=== PATIENT | female | born 1955 | race Caucasian/White ===

== ENCOUNTER 2020-03-07 10:42 | Inpatient (IN) | payer MEDICAID ==
[~2020-03-07] VITALS: Ht 167.6 cm; Wt 74.5 kg
[2020-03-07] MEDS ORDERED: ONDANSETRON 2MG/ML, 2ML IVPush ONE ×2 (11:30→14:00)
[2020-03-07] MEDS ORDERED: SODIUM CHLORIDE 0.9% 1,000ML IVBOLUS ONE (11:30)
[2020-03-07] MEDS ORDERED: ONDANSETRON 2MG/ML, 2ML ONE ×2 (11:44→13:42)
--- NOTE | 2020-03-07 11:45 | NUR ---
TASK RN: PT AMBULATED TO BATHROOM AND PROVIDED URINE SAMPLE. MEDICATED FOR NAUSEA AND FLUIDS INFUSING
[2020-03-07 11:49] LABS: BASOPHILS # (AUTO) 0.02 x10^3/uL (0-0.1); BASOPHILS % (AUTO) 0 % (0-1); EOSINOPHILS # (AUTO) 0.02 x10^3/uL (0-0.4); EOSINOPHILS % (AUTO) 0 % (1-7); LYMPHOCYTES # (AUTO) 0.82 x10^3/uL (1-3.4); LYMPHOCYTES % (AUTO) 9 % (22-44); MD NO; MEAN CORPUSCULAR HEMOGLOBIN 32.5 pg (27.0-34.8); MEAN CORPUSCULAR HGB CONC 32.5 g/dL (32.4-35.8); MEAN CORPUSCULAR VOLUME 99.8 fL (80-100); MEAN PLATELET VOLUME 6.9 fL (7.4-10.4); MONOCYTES # (AUTO) 0.56 x10^3/uL (0.2-0.8); MONOCYTES % (AUTO) 6 % (2-9); NEUTROPHILS # (AUTO) 7.86 x10^3/uL (1.8-6.8); NEUTROPHILS % (AUTO) 85 % (42-75); PLATELET COUNT 173 x10^3/uL (130-400); RED BLOOD COUNT 3.72 x10^6/uL (3.82-5.3); RED CELL DISTRIBUTION WIDTH 13.9 % (9.6-15.2)
[2020-03-07 11:56] LABS: MICROSCOPIC AUTO
[2020-03-07 11:57] LABS: ALANINE AMINOTRANSFERASE 18 U/L (12-78); ALBUMIN 3.7 g/dL (3.4-5.0); ANION GAP 9 mmol/L (5-15); CALCIUM 8.9 mg/dL (8.5-10.1); CHLORIDE 93 mmol/L (98-107); CREATININE 0.85 mg/dL (0.55-1.02)
[2020-03-07 12:00] LABS: ALKALINE PHOSPHATASE 77 U/L (45-117); BILIRUBIN,TOTAL 0.4 mg/dL (0.2-1.0); TOTAL PROTEIN 7.4 g/dL (6.4-8.2)
--- NOTE | 2020-03-07 12:31 | NUR ---
PT GOING FOR CT AT THIS TIME.
[2020-03-07] MEDS ORDERED: OMNIPAQUE 350 MG/ML, 100ML BOTTLE ONE (12:53)
[2020-03-07] MEDS ORDERED: PIPERACILLIN/TAZO/PMX 3.375GM 50 ML ONE (13:12)
--- NOTE | 2020-03-07 13:20 | NUR ---
PT AWARE THAT SHE IS GOING TO BE ADMITTED. CONFIRMED WITH ERP, NO BLOOD CX TO BE DRAWN BEFORE ABX STARTED, ERP STATED INFECTIOUS SOURCE IS KNOWN, NO BLOOD CULTURES TO BE DRAWN AT THIS TIME.
[2020-03-07] MEDS ORDERED: GABA300C PO (13:27)
[2020-03-07] MEDS ORDERED: ESTR2TAB PO (13:27)
[2020-03-07] MEDS ORDERED: PIPERACILLIN/TAZO/PMX 3.375GM 50 ML IV ONE (13:30)
[2020-03-07] MEDS ORDERED: MORPHINE SULFATE 4 MG/ML, 1ML ONE ×2 (13:42→16:13)
[2020-03-07] MEDS: MORPHINE SULFATE 4 MG/ML, 1ML IVPush PRN ×2 (13:47→16:15)
--- NOTE | 2020-03-07 14:45 | NUR ---
PT GIVEN BEDSIDE COMMODE FOR EASE OF RELEIVING FREQUENT NEED TO STOOL. PT ON VITALS MONITORS. WILL CONTINUE TO MONITOR.
[2020-03-07 15:01] LABS: CLOSTRIDIUM DIFFICILE ANTIGEN NEGATIVE; CLOSTRIDIUM DIFFICILE TOXIN NEGATIVE (Negative)
[2020-03-07] MEDS ORDERED: ONDANSETRON 2MG/ML, 2ML IVPush PRN (16:00)
[2020-03-07] MEDS ORDERED: POLYETHYLENE GLYCOL 17 GM PACKET PO PRN (16:00)
[2020-03-07] MEDS ORDERED: hydrALAzine 20 MG/ML, 1ML IVPush PRN (16:00)
--- NOTE | 2020-03-07 16:04 | NUR ---
REPORT GIVEN TO TOM KAY. HOSPITALIST JUST IN TO SEE PT.
[2020-03-07 16:30] LABS: HCT (SEDRATE) 37.2 % (34.6-47.8)
[2020-03-07 16:42] VITALS: BP 168/81
[2020-03-07] MEDS: NS + 20MEQ KCL 1,000 ML IV SCH (17:22)
[2020-03-07] MEDS: HEPARIN 5,000 UNITS/ML, 1ML SQ SCH (17:36)
[2020-03-07 19:27] VITALS: BP 137/74
[2020-03-07] MEDS: morphine SULFATE 10 MG/ML, 1ML IVPush PRN ×2 (20:30→23:42)
[2020-03-08] MEDS: NS + 20MEQ KCL 1,000 ML IV SCH ×3 (00:20→23:41)
[2020-03-08] MEDS: HEPARIN 5,000 UNITS/ML, 1ML SQ SCH ×3 (01:59→17:42)
[2020-03-08 02:18] VITALS: BP 132/74
[2020-03-08] MEDS ORDERED: MORPHINE SULFATE 4 MG/ML, 1ML ONE (04:13)
[2020-03-08] MEDS: morphine SULFATE 10 MG/ML, 1ML IVPush PRN ×4 (04:17→20:33)
[2020-03-08 05:53] LABS: BASOPHILS # (AUTO) 0.03 x10^3/uL (0-0.1); BASOPHILS % (AUTO) 1 % (0-1); EOSINOPHILS # (AUTO) 0.18 x10^3/uL (0-0.4); EOSINOPHILS % (AUTO) 3 % (1-7); LYMPHOCYTES # (AUTO) 1.77 x10^3/uL (1-3.4); LYMPHOCYTES % (AUTO) 30 % (22-44); MD NO; MEAN CORPUSCULAR HEMOGLOBIN 32.8 pg (27.0-34.8); MEAN CORPUSCULAR HGB CONC 33.3 g/dL (32.4-35.8); MEAN CORPUSCULAR VOLUME 98.5 fL (80-100); MEAN PLATELET VOLUME 6.9 fL (7.4-10.4); MONOCYTES # (AUTO) 0.66 x10^3/uL (0.2-0.8); MONOCYTES % (AUTO) 11 % (2-9); NEUTROPHILS # (AUTO) 3.36 x10^3/uL (1.8-6.8); NEUTROPHILS % (AUTO) 56 % (42-75); PLATELET COUNT 151 x10^3/uL (130-400); RED BLOOD COUNT 3.27 x10^6/uL (3.82-5.3); RED CELL DISTRIBUTION WIDTH 13.9 % (9.6-15.2)
[2020-03-08 06:00] LABS: ANION GAP 5 mmol/L (5-15); CALCIUM 8.2 mg/dL (8.5-10.1); CHLORIDE 106 mmol/L (98-107)
[2020-03-08 06:01] LABS: CREATININE 0.79 mg/dL (0.55-1.02)
[2020-03-08 07:26] VITALS: BP 116/65
[2020-03-08] MEDS ORDERED: PANTOPRAZOLE 40 MG IV IVPush SCH (07:30)
[2020-03-08] MEDS ORDERED: HYDROcodone/APAP 5/325 TABLET ONE (09:57)
[2020-03-08] MEDS: HYDROcodone/APAP 5/325 TABLET PO PRN ×3 (10:00→23:44)
[2020-03-08] MEDS: PIPERACILLIN/TAZO/PMX 3.375GM 50 ML IV SCH ×3 (11:21→23:38)
[2020-03-08 14:56] VITALS: BP 132/71
[2020-03-08] MEDS ORDERED: MOVIPREP POWDER 1 PREP KIT PO SCH (16:00)
[2020-03-08] MEDS: MOVIPREP POWDER 1 PREP KIT PO SCH ×2 (16:00→20:18)
[2020-03-08 20:22] VITALS: BP 141/73
[2020-03-09] MEDS: HEPARIN 5,000 UNITS/ML, 1ML SQ SCH ×3 (02:02→17:46)
[2020-03-09 02:05] VITALS: BP 119/73
[2020-03-09] MEDS ORDERED: MOVIPREP POWDER 1 PREP KIT PO ONE (05:00)
[2020-03-09] MEDS: PIPERACILLIN/TAZO/PMX 3.375GM 50 ML IV SCH ×4 (05:34→23:27)
[2020-03-09] MEDS: HYDROcodone/APAP 5/325 TABLET PO PRN ×3 (05:34→17:46)
[2020-03-09 05:36] LABS: BASOPHILS # (AUTO) 0.02 x10^3/uL (0-0.1); BASOPHILS % (AUTO) 0 % (0-1); EOSINOPHILS # (AUTO) 0.25 x10^3/uL (0-0.4); EOSINOPHILS % (AUTO) 4 % (1-7); LYMPHOCYTES # (AUTO) 2.21 x10^3/uL (1-3.4); LYMPHOCYTES % (AUTO) 33 % (22-44); MD NO; MEAN CORPUSCULAR HEMOGLOBIN 33.4 pg (27.0-34.8); MEAN CORPUSCULAR VOLUME 98.1 fL (80-100); MEAN PLATELET VOLUME 7.2 fL (7.4-10.4); MONOCYTES # (AUTO) 0.62 x10^3/uL (0.2-0.8); MONOCYTES % (AUTO) 9 % (2-9); NEUTROPHILS # (AUTO) 3.68 x10^3/uL (1.8-6.8); NEUTROPHILS % (AUTO) 54 % (42-75); PLATELET COUNT 143 x10^3/uL (130-400); RED BLOOD COUNT 3.02 x10^6/uL (3.82-5.3); RED CELL DISTRIBUTION WIDTH 13.9 % (9.6-15.2)
[2020-03-09] MEDS: PANTOPRAZOLE 40MG TABLET PO SCH (05:40)
[2020-03-09 05:43] LABS: ANION GAP 4 mmol/L (5-15); CALCIUM 7.9 mg/dL (8.5-10.1); CHLORIDE 106 mmol/L (98-107)
[2020-03-09 05:46] LABS: CREATININE 0.75 mg/dL (0.55-1.02)
[2020-03-09 06:45] VITALS: BP 126/76
[2020-03-09] MEDS: morphine SULFATE 10 MG/ML, 1ML IVPush PRN (08:13)
[2020-03-09] MEDS: MOVIPREP POWDER 1 PREP KIT PO SCH ×2 (08:13→20:24)
[2020-03-09] MEDS: NS + 20MEQ KCL 1,000 ML IV SCH (13:51)
[2020-03-09 14:00] VITALS: BP 131/76
[2020-03-09] MEDS ORDERED: PANT40TA5 PO (16:36)
[2020-03-09] MEDS ORDERED: LEVO750T26 PO (16:36)
[2020-03-09] MEDS ORDERED: POLY17PO5 PO (16:36)
[2020-03-09] MEDS ORDERED: METR500T PO (16:36)
[2020-03-09 20:12] VITALS: BP 155/75
[2020-03-10] MEDS: HEPARIN 5,000 UNITS/ML, 1ML SQ SCH ×2 (01:30→09:30)
[2020-03-10] MEDS: HYDROcodone/APAP 5/325 TABLET PO PRN ×2 (02:18→09:22)
[2020-03-10] MEDS: NS + 20MEQ KCL 1,000 ML IV SCH (02:19)
[2020-03-10 02:34] VITALS: BP 147/74
[2020-03-10] MEDS: PANTOPRAZOLE 40MG TABLET PO SCH (05:53)
[2020-03-10] MEDS: PIPERACILLIN/TAZO/PMX 3.375GM 50 ML IV SCH ×2 (05:54→11:00)
[2020-03-10 08:41] VITALS: BP 131/78
[2020-03-10] MEDS: MOVIPREP POWDER 1 PREP KIT PO SCH (09:00)
== END 2020-03-10 12:00 | disposition home or self-care (01) | DRG 392 ==
LOC: ED 13:07 → EDIP 13:08 → ED 13:43 → 4NE 16:41 → DCLOUNGE 03-10 11:46
PROVIDERS: ADMIT Hospitalist; ATTEND Hospitalist
PROC: 0T9B70Z Drainage of Bladder with Drainage Device, Via Natural or Artificial Opening (ICD-10-PCS; principal; 2020-03-07)
DX: K57.32 Diverticulitis of large intestine without perforation or abscess without bleeding (principal); E87.1 Hypo-osmolality and hyponatremia; Z90.710 Acquired absence of both cervix and uterus; Z90.49 Acquired absence of other specified parts of digestive tract; Z98.51 Tubal ligation status
CPT/HCPCS: 36415; 74177; 80048; 80053; 81001; 83036; 83690; 85025; 85651; 87324; 89055; G0378; J1644; J2405; J2543; J3480; Q9967; C9113; J2270; J7030

== ENCOUNTER 2020-11-14 14:25 | Emergency (ER) | payer MEDICARE ==
[~2020-11-14] VITALS: Ht 167.6 cm; Wt 65.0 kg
[~2020-11-14 14:25] MED LIST: ESTR2TAB PO; GABA300C PO; LEVO750T26 PO; METR500T PO; PANT40TA6 PO; POLY17PO5 PO
[2020-11-14] MEDS ORDERED: SODIUM CHLORIDE FLUSH 10ML SYR IVF ONE (15:00)
[2020-11-14 15:11] LABS: BASOPHILS % (AUTO) 1 % (0-1); EOSINOPHILS % (AUTO) 1 % (1-7); LYMPHOCYTES % (AUTO) 31 % (22-44); MEAN CORPUSCULAR HEMOGLOBIN 34.5 pg (27.0-34.8); MEAN CORPUSCULAR HGB CONC 34.6 g/dL (32.4-35.8); MEAN PLATELET VOLUME 7.6 fL (7.4-10.4); MONOCYTES % (AUTO) 8 % (2-9); NEUTROPHILS % (AUTO) 60 % (42-75); PLATELET COUNT 156 x10^3/uL (130-400); RED BLOOD COUNT 3.87 x10^6/uL (3.82-5.3); RED CELL DISTRIBUTION WIDTH 13.7 % (9.6-15.2)
[2020-11-14 15:13] LABS: MD NO
[2020-11-14 15:18] LABS: ALANINE AMINOTRANSFERASE 27 U/L (12-78); ALBUMIN 4.3 g/dL (3.4-5.0); ANION GAP 7 mmol/L (5-15); CALCIUM 9.3 mg/dL (8.5-10.1); CHLORIDE 97 mmol/L (98-107); CREATININE 0.78 mg/dL (0.55-1.02)
[2020-11-14 15:21] LABS: ALKALINE PHOSPHATASE 83 U/L (45-117); BILIRUBIN,TOTAL 0.4 mg/dL (0.2-1.0)
--- NOTE | 2020-11-14 17:28 | NUR ---
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
--- NOTE | 2020-11-14 17:45 | NUR ---
CC UA COLLECTED IN COMPUTER-SAMPLE ALREADY IN LAB
--- NOTE | 2020-11-14 18:00 | NUR ---
PT HAS CO ABDOMINAL PAIN, NAUSEAS. DENIES V/D. HX OF DIVERTICULITIS, ON COURSE OF ABX FOR 3 WEEKS CIPRE/FLAGY NOW AUGMENTIN. OUTPATIENT CT SHOWED ABCESS. HERE FOR RE-WORKUP NO SIRS VITALS UPDATED ON ESTIMATED POC
[2020-11-14] MEDS ORDERED: ONDANSETRON 2MG/ML, 2ML ONE (18:01)
[2020-11-14 18:18] LABS: MICROSCOPIC NOT IND
[2020-11-14] MEDS ORDERED: AMOX1TAB12 PO (18:25)
[2020-11-14] MEDS ORDERED: LACT1CAP5 PO (18:25)
[2020-11-14] MEDS ORDERED: PREG50CA PO (18:25)
[2020-11-14] MEDS ORDERED: CRAN500C PO (18:27)
[2020-11-14] MEDS ORDERED: POLY17PO5 PO (18:27)
[2020-11-14] MEDS ORDERED: ASCO100018 PO (18:27)
[2020-11-14] MEDS ORDERED: ONDANSETRON 2MG/ML, 2ML IVPush ONE ×2 (18:30→19:30)
--- NOTE | 2020-11-14 19:00 | NUR ---
TO CT SCAN
[2020-11-14] MEDS ORDERED: MORPHINE SULFATE 4 MG/ML, 1ML ONE (19:14)
[2020-11-14] MEDS ORDERED: OMNIPAQUE 350 MG/ML, 100ML BOTTLE ONE (19:18)
[2020-11-14] MEDS ORDERED: MORPHINE SULFATE 4 MG/ML, 1ML IVPush PRN (19:30)
--- NOTE | 2020-11-14 19:59 | NUR ---
with reassessment pain improved to 2/10 All testing reviewed-erp to bedside to discuss poc
[2020-11-14] MEDS ORDERED: MAGNESIUM CITRATE 300ML ORAL SOL ONE (20:23)
[2020-11-14 20:28] VITALS: BP 139/80
[2020-11-14] MEDS ORDERED: MAGNESIUM CITRATE 300ML ORAL SOL PO ONE (20:30)
== END 2020-11-14 20:31 | disposition home or self-care (01) ==
LOC: ED 17:48
DX: K57.92 Diverticulitis of intestine, part unspecified, without perforation or abscess without bleeding (principal); K59.00 Constipation, unspecified; Z90.710 Acquired absence of both cervix and uterus; Z90.89 Acquired absence of other organs
CPT/HCPCS: 36415; 74177; 80053; 81003; 83605; 83690; 85025; 87040; 96374; 96375; 99285; J2270; J2405; Q9967